=== PATIENT | female | born 1990 | race Caucasian/White ===

== ENCOUNTER 2016-07-10 17:40 | Emergency (ER) | payer BC ==
--- NOTE | 2016-07-13 07:42 | ER ---
ADMIT: 07/10/2016 RM/LOC: ER [facility] MR#: [id number] [address] [facility] [address] [place], [place] [address] CON[address] LAGUNAS [address] [facility] [address] [place] [address] Emergency Room Report SEX: F AGE: 26 : 1990 DATE: 07/10/2016 TIME: 1740 hours. Please refer to my T-sheet for complete H and P. HISTORY OF PRESENT ILLNESS: Briefly, the patient is a 26-year-old, comes in with vomiting x3 days and thought she saw tinge of blood in it today. She speaks only Kyrgyz. She is from [place]. She is also says she is late on her period. She has had no rectal bleeding, just has been nauseous more than usual. PHYSICAL EXAMINATION: VITAL SIGNS: Her blood pressure is 112/68, pulse 96, respirations 18, temp 98.9, and saturating 95% to 100%. GENERAL: In no acute distress. HEENT: Grossly normal. LUNGS: Clear. HEART: Regular. ABDOMEN: Soft, nontender. SKIN: No rash. EMERGENCY DEPARTMENT COURSE: A urine was obtained, it came back positive . UA showed 17 white cells, 14 red cells, 1+ ketones. Chemistries normal except potassium 3.2. I gave her Zofran and Maalox and a dose of Keflex here. She felt much better. She was drinking Gatorade. Her CBC was normal except white count 4.9 and hemoglobin 10.2. She does have a history of anemia in the past. Her history is a little bit sketchy as she is from [place], but she is supposed to be on iron pills, but she is not. Long discussion. She is ready for discharge. ASSESSMENT: 1. Nausea and vomiting. 2. Positive test. 3. Mild pyuria. 4. Anemia. PLAN: Tasha, gave her 15, 4 mg tablets p.r.n., Keflex 500 b.i.d. for 5 days, vitamins. Follow up with Gabriel. Eric Francisco MD/ ashly JOB #: [id number] CC: Lauri Gallagher MD, Attending Physician Anastacia Rios MD, Family Physician
== END 2016-07-10 19:10 | disposition home or self-care (01) ==
LOC: ER 17:40
DX: Z32.01 Encounter for pregnancy test, result positive (principal); N39.0 Urinary tract infection, site not specified; D64.9 Anemia, unspecified; R11.2 Nausea with vomiting, unspecified; Z79.899 Other long term (current) drug therapy

== ENCOUNTER 2016-07-16 17:37 | Emergency (ER) | payer BC ==
--- NOTE | 2016-07-24 07:34 | ER ---
ADMIT: 07/16/2016 RM/LOC: ER [facility] MR#: [id number] [address] [facility] [address] [place], [place] [address] [address] LAGUNAS [address] [facility] [address] [place] [address] Emergency Room Report SEX: F AGE: 26 : 1990 DATE: 07/16/2016 HISTORY OF PRESENT ILLNESS: The patient is a 26-year-old female, who presents to the emergency room with cramping groin pain for 1 day. Her last menstrual period was 06/12/2016. She says that she has some stabbing pain when she walks, but denies having any frequency or urgency of urination. She denies also having any vaginal bloody discharge. REVIEW OF SYSTEMS: Negative. PAST MEDICAL HISTORY: Anemia. PAST SURGICAL HISTORY: She has had tonsillectomy. MEDICATIONS: She is taking multivitamins. ALLERGIES: SHE HAS NO ALLERGIES TO MEDICATION. PHYSICAL EXAMINATION: GENERAL: On examination, well-nourished and well- developed, alert and oriented female. VITAL SIGNS: Within normal limits. PELVIC: Vaginal discharge, thick, white. No blood. Cervix closed. ABDOMEN: Nontender. Oriented x4. PSYCHIATRIC: Mood and affect are appropriate. EXTREMITIES: Non-edematous. LABORATORY DATA: UA, rbc's 4. No bacteria. GC and chlamydia negative. Trichomonas negative. Clue cells positive. CLINICAL IMPRESSION: Bacterial vaginosis, first trimester . The patient prescribed clindamycin 300 mg b.i.d. for 7 days. First dose given in the emergency room. The patient discharged with followup with Dr. Jama, OB. VANIA Santacruz / Remi Baxter MD / ashly JOB #: [id number] CC: Ethan Dias MD, Attending Physician Lydia Jama MD, Family Physician
== END 2016-07-16 20:42 | disposition home or self-care (01) ==
LOC: ER 17:37
DX: O23.591 Infection of other part of genital tract in pregnancy, first trimester (principal); Z86.2 Personal history of diseases of the blood and blood-forming organs and certain disorders involving the immune mechanism; Z3A.00 Weeks of gestation of pregnancy not specified

== ENCOUNTER 2016-08-05 15:28 | Emergency (ER) | payer BC, MEDICAID ==
--- NOTE | 2016-08-09 16:40 | ER ---
ADMIT: 08/05/2016 RM/LOC: ER [facility] MR#: [id number] [facility] [address] [place], [place] [address] CON[address] LAGUNAS [address] [facility] [address] [place] [address] Emergency Room Report SEX: F AGE: 26 : 1990 DATE: 08/05/2016 ADDENDUM: This patient comes into the ER because she is having constant vomiting. She is currently 7 weeks by her last menstrual period, has been vomiting constantly for the last few days and feels like she is dehydrated. Incidentally, when she wiped today, she noticed 1 brown spot on the toilet paper and she is unsure if it is blood. On physical exam, her abdomen is soft, nontender to palpation. Oral mucosa is dry. On vaginal exam, she has normal external genitalia. There is no bleeding in the vagina. Her cervix is closed, but she does have quite a bit of drainage that is consistent with a vaginal yeast infection. Wet mount did show a lot of Kayla. She was given a liter of bolus, which she did feel better. I wrote a prescription for Reglan and clotrimazole. She is to follow up with Dr. Dennison for care. DIAGNOSES: 1. Hyperemesis in . 2. Vaginal yeast infection. VANIA Huertas / Eric Francisco MD / xavierl JOB #: [id number] CC: Ethan Dias MD, Attending Physician Vanessa Dennison MD, Family Physician
== END 2016-08-05 20:20 | disposition home or self-care (01) ==
LOC: ER 15:28
DX: O98.811 Other maternal infectious and parasitic diseases complicating pregnancy, first trimester (principal); B37.3 Candidiasis of vulva and vagina; O99.011 Anemia complicating pregnancy, first trimester; D64.9 Anemia, unspecified

== ENCOUNTER → 2016-08-17 | Outpatient (CLI) | payer BC, MEDICAID | END | disposition home or self-care (01) | LOC: RAD.S 09:30 | DX: Z36 Encounter for antenatal screening of mother (principal); Z3A.10 10 weeks gestation of pregnancy ==

== ENCOUNTER 2016-08-19 17:33 | Emergency (ER) | payer BC, MEDICAID ==
--- NOTE | 2016-08-21 23:47 | ER ---
ADMIT: 08/19/2016 RM/LOC: ER [facility] MR#: [id number] [address] [facility] [address] [place], [place] [address] [place] LAGUNAS [address] [facility] [address] [place] [address] Emergency Room Report SEX: F AGE: 26 : 1990 DATE: 08/19/2016 BRIEF ADDENDUM: Please see my T-sheet for complete review of systems, past medical history, and physical exam. CHIEF COMPLAINT: Vomiting. HISTORY OF PRESENT ILLNESS: This is a pleasant 26-year-old, Khmer-speaking female, who presents to the ER after vomiting at work. The patient states she was at work when she vomited 5 times. Presents to the ER with some secondary abdominal pain and nausea. She is currently being treated for yeast infection, has some aching diffuse abdominal pain. She is 10 weeks' , has nausea medication at home. She did phone her primary transition rn, who directed her to come to the ER for IV fluids and evaluation. COURSE IN THE EMERGENCY ROOM: The patient was seen and examined. Her abdomen is soft and nontender. She is in no acute distress. She is alert, did give her a liter of LR as well as 10 mg of Reglan and 25 mg of Benadryl, which did relieve her nausea and vomiting. I did get a UA on her, significant for signs of acute cystitis, so she was given her first dose of Keflex 500 mg p.o. prior to discharge. IMPRESSION: 1. Nausea and vomiting. 2. A 10-week . 3. Acute cystitis. DISPOSITION: The patient will be started on Keflex 500 mg p.o. b.i.d. for 5 days. She is to follow up with Dr. Rios as needed, continue to use her prescribed medications for nausea, she was prior to have work note, discharged in stable condition. VANIA Ohara / Eric Francisco MD / ashly JOB #: [id number] CC: Eric Francisco MD, Attending Physician
== END 2016-08-19 20:07 | disposition home or self-care (01) ==
LOC: ER 17:33
DX: O23.11 Infections of bladder in pregnancy, first trimester (principal); O99.011 Anemia complicating pregnancy, first trimester; D64.9 Anemia, unspecified; Z3A.10 10 weeks gestation of pregnancy

== ENCOUNTER → 2016-08-23 | Outpatient (CLI) | payer BC, MEDICAID | END | disposition home or self-care (01) | LOC: THER.SSS 10:31 | DX: O21.0 Mild hyperemesis gravidarum (principal); O26.10 Low weight gain in pregnancy, unspecified trimester ==